=== PATIENT | female | born 1955 | race Caucasian/White ===

== ENCOUNTER → 2016-11-06 | Outpatient (CLI) | payer BC | LOC: MAMMO 15:59 | DX: Z12.31 Encounter for screening mammogram for malignant neoplasm of breast (principal) | CPT/HCPCS: G0202 ==

== ENCOUNTER 2024-08-29 11:38 | Emergency (ER) | payer MEDICARE ==
[~2024-08-29] VITALS: Ht 162.6 cm; Wt 65.9 kg
[2024-08-29] MEDS ORDERED: PROAIR HFA0.09 MG/AC IH (11:45)
[2024-08-29 12:09] LABS: BASO # 0.02 K/mm3 (0.02-0.10); EOS # 0.01 K/mm3 (0.04-0.40); EOS % 0.1 % (1.0-5.0); HEMATOCRIT 45.6 % (37.0-47.0); HEMOGLOBIN 15.1 g/dL (12.5-16.0); LYMPH# 1.67 K/mm3 (1.50-4.00); MEAN CELL VOLUME 89 fl (78-100); MEAN CORPUSCULAR HEMOGLOBIN 29 pg (27-31); MEAN CORPUSCULAR HGB CONC 33 g/dL (33-37); MEAN PLATELET VOLUME 9.4 fl (7.4-10.4); MONO # 1.06 K/mm3 (0.20-0.80); NEU # 13.73 K/mm3 (1.40-6.50); PLATELET COUNT 268 K/mm3 (130-400); RED BLOOD COUNT 5.15 M/mm3 (4.10-5.30); RED CELL DISTRIBUTION WIDTH 12.9 % (11.5-14.5); WHITE BLOOD COUNT 16.5 K/mm3 (4.8-10.8)
[2024-08-29 12:31] LABS: PARTIAL THROMBOPLASTIN TIME 22.3 SECONDS (21.0-32.0)
[2024-08-29 12:35] LABS: CALCIUM 8.5 mg/dL (8.3-10.5)
[2024-08-29 12:36] LABS: TOTAL PROTEIN 6.7 g/dL (6.2-8.1)
[2024-08-29 12:38] LABS: TOTAL BILIRUBIN 0.8 mg/dL (0.2-1.2)
[2024-08-29] MEDS ORDERED: Iohexol 300 - 100 ML VIAL IV ONE (14:01)
[2024-08-29] MEDS ORDERED: NS 100 ML IV SCH (14:02)
[2024-08-29] MEDS ORDERED: NS 1,000 ML IV SCH (14:45)
[2024-08-29 16:15] VITALS: BP 114/90
[2024-08-30] MEDS ORDERED: DIFICID200 MG PO (20:03)
== END 2024-08-29 16:15 | disposition home or self-care (01) ==
LOC: ED 11:38
PROVIDERS: Family Medicine
DX: A04.72 Enterocolitis due to Clostridium difficile, not specified as recurrent (principal); F17.200 Nicotine dependence, unspecified, uncomplicated; Z88.2 Allergy status to sulfonamides
CPT/HCPCS: J7030; Q9967